=== PATIENT | male | born 1960 | race Caucasian/White ===

== ENCOUNTER 2021-03-16 12:58 | Inpatient (IN) | payer OTHER ==
[2021-03-16 15:36] VITALS: BMI 30.1
[2021-03-16] MEDS ORDERED: diazePAM 5 MG TABLET PO PRN (17:35)
[2021-03-16] MEDS ORDERED: MENTHOL/PHENOL 1 EACH UD MM PRN (17:35)
[2021-03-16] MEDS ORDERED: NICOTINE POLACRILEX 2 MG GUM BUC PRN (17:35)
[2021-03-16] MEDS ORDERED: IBUPROFEN 400 MG TABLET (FP) PO PRN (17:35)
[2021-03-16] MEDS ORDERED: MAGNESIUM CITRATE 300 ML BOTTLE PO PRN (17:35)
[2021-03-16] MEDS ORDERED: BISMUTH SUBSALICYLATE 524 MG/30 ML PO PRN (17:35)
[2021-03-16] MEDS ORDERED: ONDANSETRON *ODT* 4 MG TABLET SL PRN (17:35)
[2021-03-16] MEDS ORDERED: MAGNESIUM HYDROX 2400MG/30ML ORAL SUSPENSION 30 ML CUP PO PRN (17:35)
[2021-03-16] MEDS ORDERED: ACETAMINOPHEN 325 MG TABLET (FP) PO PRN ×2 (17:35)
[2021-03-16] MEDS ORDERED: METHOCARBAMOL 500 MG TABLET PO PRN (17:35)
[2021-03-16] MEDS: hydrOXYzine PAMOATE 25 MG CAPSULE (FP) PO SCH ×2 (19:25→22:52)
[2021-03-16] MEDS: PANTOPRAZOLE 40 MG TABLET PO SCH (19:25)
[2021-03-16] MEDS: MELATONIN 5 MG TABLETS PO SCH (22:42)
[2021-03-16] MEDS: THIAMINE HCL 100 MG TABLET (FP) PO SCH (22:43)
[2021-03-16] MEDS: diazePAM 5 MG TABLET PO SCH (22:45)
[2021-03-16] MEDS: MAG HYDROX/AL HYDROX/SIMETH 30 ML UNIT-DOSE CUP PO PRN (22:51)
[2021-03-17] MEDS: diazePAM 5 MG TABLET PO SCH ×4 (05:18→22:21)
[2021-03-17] MEDS: hydrOXYzine PAMOATE 25 MG CAPSULE (FP) PO SCH ×5 (05:18→22:22)
[2021-03-17] MEDS: PRENATAL VITAMINS W/ FOLIC ACID TABLET (FP) PO SCH (10:32)
[2021-03-17] MEDS: PANTOPRAZOLE 40 MG TABLET PO SCH (10:32)
[2021-03-17] MEDS: NICOTINE 21 MG/24 HOURS TOPICAL PATCH TD SCH (10:35)
[2021-03-17] MEDS: ASPIRIN COATED 81 MG TABLET.EC PO SCH (12:04)
[2021-03-17] MEDS: METOPROLOL TARTRATE 25 MG TABLET (FP) PO SCH (12:04)
[2021-03-17 14:01] LABS: HEMATOCRIT 47.5 % (35.4-49); HEMOGLOBIN 16.3 GM/dL (11.7-16.9); MCH 32.8 pg (25.7-33.7); MCHC 34.3 g/dl (32.0-35.9); MEAN CELL VOLUME 95.5 fl (80-96); MEAN PLT VOLUME 8.6 fl (7.5-11.1); PLATELET COUNT 106 10^3/uL (134-434); RBC 4.97 M/mm3 (4.00-5.60); RDW 15.1 % (11.9-15.9); WHITE BLOOD COUNT 5.3 K/mm3 (4.0-10.0)
[2021-03-17 14:11] LABS: BLOOD UREA NITROGEN 19.1 mg/dL (7-18)
[2021-03-17 14:12] LABS: ALBUMIN 3.7 g/dl (3.4-5.0); CALCIUM 8.5 mg/dL (8.5-10.1)
[2021-03-17 14:15] LABS: BILIRUBIN,TOTAL 1.7 mg/dL (0.2-1); CREATININE 0.7 mg/dL (0.55-1.3)
[2021-03-17 14:17] LABS: TOT PROT 6.6 g/dl (6.4-8.2)
[2021-03-17] MEDS: MAG HYDROX/AL HYDROX/SIMETH 30 ML UNIT-DOSE CUP PO PRN (17:41)
[2021-03-17] MEDS: NICOTINE 10 MG CARTRIDGE (INHALER) IH PRN (19:59)
[2021-03-17] MEDS: THIAMINE HCL 100 MG TABLET (FP) PO SCH (22:22)
[2021-03-17] MEDS: MELATONIN 5 MG TABLETS PO SCH (22:22)
[2021-03-18] MEDS: diazePAM 5 MG TABLET PO SCH ×3 (05:31→22:02)
[2021-03-18] MEDS: hydrOXYzine PAMOATE 25 MG CAPSULE (FP) PO SCH (05:31)
[2021-03-18] MEDS ORDERED: hydrOXYzine PAMOATE 25 MG CAPSULE (FP) PO PRN (08:12)
[2021-03-18] MEDS: ASPIRIN COATED 81 MG TABLET.EC PO SCH (10:23)
[2021-03-18] MEDS: PRENATAL VITAMINS W/ FOLIC ACID TABLET (FP) PO SCH (10:23)
[2021-03-18] MEDS: METOPROLOL TARTRATE 25 MG TABLET (FP) PO SCH (10:23)
[2021-03-18] MEDS: PANTOPRAZOLE 40 MG TABLET PO SCH (10:23)
[2021-03-18] MEDS: NICOTINE 21 MG/24 HOURS TOPICAL PATCH TD SCH (10:24)
[2021-03-18] MEDS: NICOTINE 10 MG CARTRIDGE (INHALER) IH PRN ×2 (18:28→22:04)
[2021-03-18] MEDS: THIAMINE HCL 100 MG TABLET (FP) PO SCH (22:02)
[2021-03-18] MEDS: MELATONIN 5 MG TABLETS PO SCH (22:03)
[2021-03-18] MEDS: MAG HYDROX/AL HYDROX/SIMETH 30 ML UNIT-DOSE CUP PO PRN (22:03)
[2021-03-19] MEDS ORDERED: diazePAM 5 MG TABLET PO SCH (06:00)
[2021-03-19 09:15] VITALS: BP 109/75; PULSE 85; TEMP 96.8
[2021-03-19 11:02] LABS: INR 0.96 (0.83-1.09); PROTHROMBIN TIME (PATIENT) 11.6 SEC (9.7-13.0)
[2021-03-19 12:35] LABS: BLOOD UREA NITROGEN 19.8 mg/dL (7-18); CALCIUM 8.5 mg/dL (8.5-10.1)
[2021-03-19 12:38] LABS: CREATININE 0.8 mg/dL (0.55-1.3)
[2021-03-19 12:39] LABS: BILIRUBIN,TOTAL 1.3 mg/dL (0.2-1); TOT PROT 6.2 g/dl (6.4-8.2)
[2021-03-19 12:54] LABS: ALBUMIN 3.2 g/dl (3.4-5.0)
[2021-03-20] MEDS ORDERED: diazePAM 5 MG TABLET PO ONE (06:00)
== END 2021-03-19 09:55 | disposition home or self-care (01) | DRG 897 ==
LOC: YASAS 12:58 → Y3N 18:31
PROVIDERS: ADMIT Allergy & Immunology; ATTEND Allergy & Immunology
PROC: HZ2ZZZZ Detoxification Services for Substance Abuse Treatment (ICD-10-PCS; principal; 2021-03-16)
DX: F10.230 Alcohol dependence with withdrawal, uncomplicated (principal); F10.220 Alcohol dependence with intoxication, uncomplicated; F17.210 Nicotine dependence, cigarettes, uncomplicated; I48.91 Unspecified atrial fibrillation; K21.9 Gastro-esophageal reflux disease without esophagitis; R74.01 Elevation of levels of liver transaminase levels; R74.8 Abnormal levels of other serum enzymes
CPT/HCPCS: 36415; 80053; 85027; 85610; 86780; 93005; 93010; C9803; U0003; U0005